=== PATIENT | female | born 1995 | race Caucasian/White ===

== ENCOUNTER 2018-10-14 15:31 | Emergency (ER) | payer OTHER ==
[~2018-10-14] VITALS: Ht 167.6 cm; Wt 114.4 kg
[~2018-10-14 15:31] MED LIST: IBUP-1542 PO; IRON1TAB74; PNV1TABL43 PO; PREN-39 PO
[2018-10-14 15:35] VITALS: BP 135/65; PULSE 82; RESP 20; Ht 167.6 cm; Wt 114.4 kg
[2018-10-14] MEDS ORDERED: IBUPROFEN 600 MG TAB PO ONE (16:30)
[2018-10-14] MEDS ORDERED: HYDR-4011 PO (17:13)
[2018-10-14] MEDS ORDERED: IBUP-1542 PO (17:13)
--- NOTE | 2018-10-14 17:26 | ERD ---
ER Documentation Chief Complaint Chief Complaint Complains of pain to the buttock area after a fall HPI 22-year-old female complaining of pain in the tailbone area after fall yesterday. Patient states that her foot slipped, and caused her to fall, landing on her tailbone. Denies radiation of pain. Denies bowel or bladder dysfunction. Denies any other injuries. She did not take any medication for pain at home. ROS All systems reviewed and are negative except as per history of present illness. Medications Home Meds Active Scripts Hydrocodone/Acetaminophen (Mclaughlin 5-325 Tablet) 1 Each Tablet, 1 TAB PO Q6H PRN for PAIN, #5 TAB Prov:BRENDA HOUSE. SENIOR CREDIT ANALYST 10/14/18 Ibuprofen* (Motrin*) 600 Mg Tab, 600 MG PO Q6H PRN for PAIN AND OR ELEVATED TEMP, #30 TAB Prov:BRENDA HOUSE X. SENIOR CREDIT ANALYST 10/14/18 Ibuprofen* (Motrin*) 600 Mg Tab, 600 MG PO Q6H PRN for PAIN AND OR ELEVATED TEMP, #30 TAB Prov:RASHAD MALDONADO PA-C 03/07/16 Reported Medications Vits W-Ca,Fe,Fa(<1MG) ( Vitamins) 1 Tab Tablet, 1 TAB PO AM, #1 07/07/13 Iron Bis-Gly/Fa/C/B12/Ca/Succ (IRON / TABLET) 1 Each Tablet, 1 EACH .ROUTE 04/23/13 Vit/Fe Fumarate/Fa* ( Vitamin Tablet*) 1 Tab Tablet, 1 TAB PO DAILY 04/23/13 [None] No Conflict Check 02/05/11 Allergies Allergies: Coded Allergies: No Known Allergies (Verified Allergy, Mild, 04/29/13) PMhx/Soc History of Surgery: Yes (C-SEC) Anesthesia Reaction: No Hx Neurological Disorder: No Hx Respiratory Disorders: No Hx Cardiac Disorders: No Hx Psychiatric Problems: No Hx Miscellaneous Medical Probl: No Hx Alcohol Use: No Hx Substance Use: No Hx Tobacco Use: No Smoking Status: Never smoker Physical Exam Vitals Vital Signs Date Temp Pulse Resp B/P (MAP) Pulse Ox O2 O2 Flow FiO2 Time Delivery Rate 10/14/18 98.6 82 20 135/65 100 15:35 (88) Physical Exam General: Well-developed, obese, conscious and coherent, in no distress Skin: Warm and dry without rash, good texture and turgor Head: Normocephalic without evidence of trauma Chest: Normal AP diameter. Good expansion without retractions. Nontender. Lungs are clear to auscultate bilaterally with good tidal volume Heart: Regular rate and rhythm. No murmur, rub, or gallops heard Back: Tenderness in the coccyx area, no other spinal or CVA tenderness Pelvis: Nontender to palpation and stable to compression Extremities: Full range of motion. Good strength bilaterally. No erythema, ecchymosis, or edema. Peripheral pulses are intact. Sensation intact Neuro: Alert and oriented 4, GCS 15. Results 24 hrs Laboratory Tests Test 10/14/18 16:20 POC Beta HCG, Qualitative NEGATIVE Current Medications Medications Dose Sig/Mendez Start Time Status Last (Trade) Ordered Route PRN Stop Time Admin Dose Reason Admin Ibuprofen 600 mg ONCE ONCE 10/14/18 DC 10/14/18 (Motrin) PO 16:30 16:16 10/14/18 16:31 PROCEDURE: XR sacrum and coccyx . CLINICAL INDICATION: coccyx pain, sp fall TECHNIQUE: AP and lateral views of the sacrum and coccyx were performed. COMPARISON: No prior studies are available for comparison. FINDINGS: Suspect minimal displaced fracture of the coccyx with adjacent soft tissue swel ling with areas of slight cortical step-off. SI joints and pubic symphysis are intact. Hip joints appear intact. IMPRESSION: Suspect minimally-displaced fracture of the coccyx with areas of slight cortical step-off. RPTAT:AAJJ Physician Tim Date Time Electronically viewed and signed by Physician Tim on 10/14/2018 16:56 RF/ CC: BRENDA HOUSE SENIOR CREDIT ANALYST Procedures/MDM Well-appearing 22-year-old female presented to ED with coccyx pain after a fall yesterday. X-ray of the sacrum and coccyx showed possible nondisplaced fracture of the coccyx, x-ray otherwise normal. I doubt cauda equina syndrome. Ibuprofen given to the patient in the ED for pain. Patient appears well, stable for discharge and outpatient management. Medical decision making shared with patient and family. Education provided to patient and family. Patient and family expressed understanding of the plan. Medications on discharge: Ibuprofen, Mclaughlin. Follow-up: Primary care provider in 1 week or return to ED if worse. Disclaimer: Inadvertent spelling and grammatical errors are likely due to EHR/dictation software use and do not reflect on the overall quality of patient care. Also, please note that the electronic time recorded on this note does not necessarily reflect the actual time of the patient encounter. Departure Diagnosis: Primary Impression: Fractured coccyx Encounter type: initial encounter Fracture type: closed Qualified Codes: S32.2XXA - Fracture of coccyx, initial encounter for closed fracture Condition: Stable Patient Instructions: Fracture, Coccyx Referrals: [facility] YOU HAVE RECEIVED A MEDICAL SCREENING EXAM AND THE RESULTS INDICATE THAT YOU DO NOT HAVE A CONDITION THAT REQUIRES URGENT TREATMENT IN THE EMERGENCY DEPARTMENT. FURTHER EVALUATION AND TREATMENT OF YOUR CONDITION CAN WAIT UNTIL YOU ARE SEEN IN YOUR DOCTORS OFFICE WITHIN THE NEXT 1-2 DAYS. IT IS YOUR RESPONSIBILITY TO MAKE AN APPOINTMENT FOR FOLOW-UP CARE. IF YOU HAVE A PRIMARY DOCTOR --you should call your primary doctor and schedule an appointment IF YOU DO NOT HAVE A PRIMARY DOCTOR YOU CAN CALL OUR PHYSICIAN REFERRAL HOTLINE AT IF YOU CAN NOT AFFORD TO SEE A PHYSICIAN YOU CAN CHOSE FROM THE FOLLOWING [facility] [address] [facility] [address] [facility] [facility] [address] [facility]. [facility] [address] [facility]. [facility] [address] [facility] [facility] [address] Additional Instructions: Call your primary care doctor TOMORROW for an appointment during the next 1 WEEK.Tell the membership secretary that you were referred from this facility.See the doctor sooner or return here if your condition worsens before your appointment time. BREDNA HOUSE NP Oct 14, 2018 17:25
== END 2018-10-14 17:59 | disposition home or self-care (01) ==
LOC: FTE 15:31
DX: S32.2XXA Fracture of coccyx, initial encounter for closed fracture (principal); R40.2412 Glasgow coma scale score 13-15, at arrival to emergency department; W01.0XXA Fall on same level from slipping, tripping and stumbling without subsequent striking against object, initial encounter; Y92.9 Unspecified place or not applicable
CPT/HCPCS: 72220; 81025; Z7502; Z7610